=== PATIENT | male | born 2000 | race Caucasian/White ===

== ENCOUNTER 2022-08-14 17:03 | Emergency (ER) | payer OTHER ==
[~2022-08-14] VITALS: Ht 180.3 cm; Wt 70.5 kg
[2022-08-14 17:03] VITALS: BP 137/67
[2022-08-14] MEDS ORDERED: PANT40TA29 PO (17:08)
== END 2022-08-14 19:56 | disposition home or self-care (01) ==
LOC: M ED 17:03
DX: S70.12XA Contusion of left thigh, initial encounter (principal); S70.212A Abrasion, left hip, initial encounter; S33.5XXA Sprain of ligaments of lumbar spine, initial encounter; V86.56XA Driver of dirt bike or motor/cross bike injured in nontraffic accident, initial encounter; Z88.0 Allergy status to penicillin; Z79.1 Long term (current) use of non-steroidal anti-inflammatories (NSAID)